=== PATIENT | male | born 1995 | race Caucasian/White ===

== ENCOUNTER 2017-10-15 16:54 | Emergency (ER) | payer OTHER ==
--- NOTE | 2017-10-15 17:28 | XRAY Report ---
EXAM: LEFT ANKLE RADIOGRAPHY EXAM DATE: 10/15/2017 05:11 PM. CLINICAL HISTORY: Injury. COMPARISON: None. TECHNIQUE: 3 views. FINDINGS: Bones: Normal. No fractures or bone lesions. Joints: Normal. No effusion. No subluxations. The ankle mortise is normally aligned. Soft Tissues: Mild lateral soft tissue swelling. IMPRESSION: No fracture or dislocation. [facility] Referring Provider Line: [phone] SITE ID: [id number]
[2017-10-15 18:56] VITALS: BP 110/67
--- NOTE | 2017-10-15 19:02 | ED Physician Documentation ---
History of Present Illness - Stated complaint Stated Complaint: L ANKLE INJ - Chief complaint Chief Complaint: Ext Problem - Additonal information Additional information: hx from pt 22 male AD rolled ankle playing basketball yesterday played for a bit longer but it hurt so he had to sit out still hurts today so to ER for xrays Review of Systems Musculoskeletal: reports: Pain with weight bearing PD PAST MEDICAL HISTORY - Past Medical History Past Medical History: No - Past Surgical History Past Surgical History: No - Present Medications Home Medications: Ambulatory Orders Medication Instructions Recorded Confirmed No Known Home Medications [No 10/15/17 10/15/17 Known Home Medications] - Allergies Allergies/Adverse Reactions: Allergies Allergy/AdvReac Type Severity Reaction Status Date / Time No Known Drug Allergies Allergy Verified 10/15/17 17:07 - Social History Does the pt smoke?: No Smoking Status: Never smoker Does the pt drink ETOH?: No Does the pt have substance abuse?: No - Immunizations Immunizations are current?: Yes PD ED PE NORMAL - Vitals Vital signs reviewed: Yes - Extremities Extremities: Other (LLE - knee non tedner, prox tib fib NT, TTP lateral > medial mall and tolig inf and to lateral mall, no TTP to 5th MT or forefooot/ midfoot, MSV intact, no laxity) Results - Vitals Vitals: Vital Signs - 24 hr 10/15/17 10/15/17 17:02 18:55 Temperature 37.2 C 36.4 C L Heart Rate 77 65 Respiratory 18 18 Rate Blood Pressure 115/70 110/67 O2 Saturation 99 98 Oxygen O2 Source Room air - Rads (name of study) ank;e Radiology: See rad report (neg) Departure - Departure Disposition: 01 Home, Self Care Clinical Impression: Ankle sprain Qualifiers: Encounter type: initial encounter Involved ligament of ankle: unspecified ligament Laterality: left Qualified Code(s): S93.402A - Sprain of unspecified ligament of left ankle, initial encounter Condition: Good Instructions: ED Sprain Ankle Follow-Up: ANDREW Olson [Provider Group] Comments: Thankfully no fracture was seen Recommend you use the LENKA wrap (as well as ice and elevation) to decrease swelling, use the crutches to rest the ankle, motrin as needed for pain When you are able to bear weight without pain you can stop using the crutches If you can still not bear weight without pain in 2 weeks, please follow up with your PMD at [facility] for a recheck and consideration of further imaging Forms: Activity restrictions
== END 2017-10-15 19:22 | disposition home or self-care (01) ==
LOC: ED 16:54
DX: S93.402A Sprain of unspecified ligament of left ankle, initial encounter (principal); X50.0XXA Overexertion from strenuous movement or load, initial encounter; Y93.67 Activity, basketball
CPT/HCPCS: 99283

== ENCOUNTER 2021-03-28 19:32 | Emergency (ER) | payer OTHER ==
--- NOTE | 2021-03-28 21:03 | ED Physician Documentation ---
History of Present Illness - Stated complaint Stated Complaint: MIGRAINE,DIZZY - Chief complaint Chief Complaint: Neuro - History obtained from History obtained from: Patient - Additonal information Additional information: Pt comes to the ED for CC of migraine headache. He states he has a h/o migraines, and that this feels consistent with previous ones. He states that sx started last night, and that as usual, escalated to nausea until he vomited this afternoon. As also per usual, pt began to improve after vomiting. He states he is mainly here for a work note, since he missed work at his job at the [employer] today. No other complaints at this time. Review of Systems Ten Systems: 10 systems reviewed and negative Constitutional: reports: Reviewed and negative Eyes: reports: Reviewed and negative Ears: reports: Reviewed and negative Nose: reports: Reviewed and negative Throat: reports: Reviewed and negative Cardiac: reports: Reviewed and negative Respiratory: reports: Reviewed and negative GI: reports: Nausea, Vomiting, Reviewed and negative : reports: Reviewed and negative Skin: reports: Reviewed and negative Musculoskeletal: reports: Reviewed and negative Neurologic: reports: Headache Psychiatric: reports: Reviewed and negative Endocrine: reports: Reviewed and negative Immunocompromised: reports: Reviewed and negative PD PAST MEDICAL HISTORY - Past Medical History Past Medical History: Yes Neuro: Migraines - Past Surgical History Past Surgical History: No - Present Medications Home Medications: Ambulatory Orders Medication Instructions Recorded Confirmed SUMAtriptan [Imitrex] 25 mg PO PRN PRN 03/28/21 03/28/21 - Allergies Allergies/Adverse Reactions: Allergies Allergy/AdvReac Type Severity Reaction Status Date / Time No Known Drug Allergies Allergy Verified 03/28/21 19:55 - Social History Does the pt smoke?: No Smoking Status: Never smoker Does the pt drink ETOH?: No Does the pt have substance abuse?: No - Immunizations Immunizations are current?: Yes PD ED PE NORMAL - Vitals Vital signs reviewed: Yes - General General: Alert and oriented X 3, No acute distress, Well developed/nourished - HEENT HEENT: Atraumatic, PERRL, EOMI, Moist mucous membranes - Neck Neck: Supple, no meningeal sign - Cardiac Cardiac: RRR, No murmur - Respiratory Respiratory: No respiratory distress, Clear bilaterally - Abdomen Abdomen: Soft, Non tender, Non distended - Derm Derm: Warm and dry - Extremities Extremities: No deformity - Neuro Neuro: Alert and oriented X 3 - Psych Psych: Normal mood, Normal affect Results - Vitals Vitals: Oxygen O2 Source Room air PD MEDICAL DECISION MAKING - ED course Complexity details: considered differential, d/w patient ED course: Pt declined symptomatic treatment, stating that he mostly was feeling better. Pt was well-appearing at this point, and no further work-up was indicated in the ED. Pt stable for d/c home. I have written a work note. Departure - Departure Disposition: Home, Self Care Clinical Impression: Migraine Qualifiers: Migraine type: unspecified Status migrainosus presence: without status migrainosus Intractability: not intractable Qualified Code(s): G43.909 - Migraine, unspecified, not intractable, without status migrainosus Condition: Stable Instructions: ED Headache Migraine Forms: Activity restrictions Discharge Date/Time: 03/28/21 21:30
[2021-03-28 21:28] VITALS: BP 108/64
== END 2021-03-28 21:30 | disposition home or self-care (01) ==
LOC: ED 19:32
DX: G43.909 Migraine, unspecified, not intractable, without status migrainosus (principal); R11.2 Nausea with vomiting, unspecified
CPT/HCPCS: 99281; 99284

== ENCOUNTER 2021-07-16 16:02 | Emergency (ER) | payer OTHER ==
--- NOTE | 2021-07-16 16:37 | ED Physician Documentation ---
History of Present Illness - Stated complaint Stated Complaint: MALE - Chief complaint Chief Complaint: General - History obtained from History obtained from: Patient - Additonal information Additional information: Constant dull pain of the left testicle over the last 2 months. Certain positions make it better and worse. Sometimes finds it difficult to find a comfortable position to sleep in. Over a month ago he had a negative ultrasound on the [place] and per him he was also tested for STDs which was negative. Over the last week the pain is a little worse, still constant and he thinks he f eels a lump on the medial side of the left testicle now. Review of Systems Constitutional: denies: Fever, Chills Nose: denies: Rhinorrhea / runny nose Throat: denies: Sore throat Cardiac: denies: Chest pain / pressure, Palpitations Respiratory: denies: Dyspnea, Cough PD PAST MEDICAL HISTORY - Past Medical History Neuro: Migraines - Past Surgical History Past Surgical History: No - Present Medications Home Medications: Ambulatory Orders Medication Instructions Recorded Confirmed SUMAtriptan [Imitrex] 25 mg PO PRN PRN 03/28/21 03/28/21 - Allergies Allergies/Adverse Reactions: Allergies Allergy/AdvReac Type Severity Reaction Status Date / Time No Known Drug Allergies Allergy Verified 07/16/21 16:05 - Social History Does the pt smoke?: No Smoking Status: Never smoker Does the pt drink ETOH?: No Does the pt have substance abuse?: No - Immunizations Immunizations are current?: Yes PD ED PE NORMAL - Vitals Vital signs reviewed: Yes - General General: Alert and oriented X 3, No acute distress - HEENT HEENT: PERRL, EOMI - Neck Neck: Supple, no meningeal sign, No bony TTP - Cardiac Cardiac: RRR, No murmur - Abdomen Abdomen: Non tender - Male Male : Other (Testicular exam is grossly normal, I do not feel a mass. He has positive cremaster reflexes on both sides. No tenderness. No hernia mass.) - Neuro Neuro: Alert and oriented X 3, Normal speech Results - Vitals Vitals: Vital Signs - 24 hr 07/16/21 07/16/21 16:05 18:31 Temperature 36.5 C 36.5 C Heart Rate 75 72 Respiratory 16 16 Rate Blood Pressure 127/69 124/72 O2 Saturation 100 100 Oxygen O2 Source Room air PD MEDICAL DECISION MAKING - ED course ED course: 25-year-old gentleman with now chronic left testicular pain. Initial read from the blood collector was negative except for an epididymal cyst. Radiologist questions epididymoorchitis which is not consistent with the clinical picture. Advised to follow-up with urology. Departure - Departure Disposition: Home, Self Care Clinical Impression: Testicular pain, left Condition: Good Record reviewed to determine appropriate education?: Yes Instructions: ED Testicular Pain [facility] Comments: Your ultrasound was negative except for an epididymal cyst on the left side. It was very small but this is likely what you are feeling on the left. This would not be a painful finding. So the cause of your pain is not clear. The time course and 2 negatives ultrasound suggested a benign cause. That said I would [place] and consider referral to your urology for further evaluation and treatment. Ibuprofen as needed for pain. Return if worsening. Discharge Date/Time: 07/16/21 18:30
--- NOTE | 2021-07-16 18:27 | Ultrasound Report ---
PROCEDURE: Testicle w/Doppler INDICATIONS: L testicle pain TECHNIQUE: Real-time scanning was performed of the scrotum and testicles, with image documentation. Color and p ulse Doppler interrogation was performed of both testicles. COMPARISON: None. FINDINGS: Left: Testicle is normal in size at 2.3 x 2.7 x 5.2 cm, and homogenous in echotexture. Epididymis i s normal in overall size and morphology. No hydrocele or varicoceles. Overlying scrotal skin is nor mal in thickness. Right: Testicle is normal in size at 1.7 x 3.1 x 4.4 cm, and homogeneous in echotexture. Epididymis is normal in overall size and morphology. No hydrocele or varicoceles. Overlying scrotal skin is n ormal in thickness. Doppler: Color and pulse Doppler interrogation demonstrates arterial and venous blood flow in both t esticles. There is questionable asymmetrically increased blood flow in the left testicle and left epi didymis. IMPRESSION: Questionable slight asymmetric increase in Doppler flow signal in the left testicle epididymis. Findi ngs could represent epididymoorchitis in the appropriate clinical setting, versus representing a norm al for the patient or perhaps a technique-related visual difference. No findings of torsion or other acute finding in the testicles. Reviewed by: Bentley Clay MD on 07/16/2021 5:25 PM [facility] Approved by: Bentley Clay MD on 07/16/2021 5:25 PM [facility] Station ID: [id number]
[2021-07-16 18:32] VITALS: BP 124/72
--- NOTE | 2021-07-17 12:21 | ED Physician Documentation ---
ED Addendum - Addendum Addendum: 07/17/21 12:20 Initial report on ultrasound was epididymal cyst but no acute disease, final report reviewed and I talked with patient today and we will trial some doxycycline. He was electronically prescribed doxycycline 100 mg p.o. twice daily for 10 days to [place].
== END 2021-07-16 18:30 | disposition home or self-care (01) ==
LOC: ED 16:02
DX: N50.812 Left testicular pain (principal); G89.29 Other chronic pain; N50.3 Cyst of epididymis
CPT/HCPCS: 93975; 99283; 99284

== ENCOUNTER 2023-06-10 12:59 | Emergency (ER) | payer OTHER ==
[2023-06-10 13:17] VITALS: BP 115/75; O2SAT 100
--- NOTE | 2023-06-10 13:31 | ED Physician Documentation ---
PD HPI HEADACHE - Stated complaint Stated Complaint: HEAD PX,NAUSEA - Chief complaint Chief Complaint: Neuro - History obtained from History obtained from: Patient - History of Present Illness Timing - onset: How many months ago (had had headache left side most days for some duration for couple of months, with increasing severity and duration. The past 2 weeks has had daily and mostly continual headache, worsening the past couple of days. Left sided with nausea, light/smell sensitive, some blurred vision. No focal deficits.) Timing - onset during: Light activity Timing - details: Gradual onset, Still present, Waxing and waning Worst headache ever?: Worst headache ever? Location: Front, Left Quality: Throbbing, Aching Associated symptoms: Nausea, Vision changes. No: Fever, Stiff neck, Vomiting, Weakness, Numbness Improved by: Dark room Worsened by: Light, Moving, Other (smells) Contributing factors: No: Recent illness, Trauma Similar symptoms before: Has not had sx before Recently seen: Not recently seen Review of Systems Constitutional: denies: Fever, Chills Eyes: reports: Photophobia. denies: Loss of vision Nose: reports: Sinus pressure / pain. denies: Rhinorrhea / runny nose, Congestion Throat: denies: Sore throat Cardiac: denies: Chest pain / pressure, Palpitations Respiratory: denies: Cough GI: reports: Nausea. denies: Abdominal Pain, Vomiting PD PAST MEDICAL HISTORY - Past Medical History Past Medical History: Yes Cardiovascular: None Respiratory: None Neuro: Migraines (occasional headaches in past self daignosed as migraines. No evaluations. Takes Tylenol or Ibuprofen and rests. More frequent and severe the past 2 months. ) Endocrine/Autoimmune: None GI: None : None HEENT: None Psych: None Musculoskeletal: None Derm: None - Past Surgical History Past Surgical History: No - Present Medications Home Medications: Ambulatory Orders Medication Instructions Recorded Confirmed Amitriptyline [Elavil] 25 mg PO HS #30 tablet 06/10/23 HYDROcod/ACETAM 5/325 [[place] 5/325] 1 ea PO Q6H PRN #12 tablet 06/10/23 Meloxicam [Mobic] 7.5 mg PO BID 10 Days #20 tablet 06/10/23 dexAMETHasone [Decadron] 4 mg PO DAILY #7 tablet 06/10/23 - Allergies Allergies/Adverse Reactions: Allergies Allergy/AdvReac Type Severity Reaction Status Date / Time No Known Drug Allergies Allergy Verified 06/10/23 13:06 - Social History Does the pt smoke?: No Smoking Status: Never smoker Does the pt drink ETOH?: No Does the pt have substance abuse?: No - Immunizations Immunizations are current?: Yes PD ED PE NORMAL - Vitals Vital signs reviewed: Yes - General General: Alert and oriented X 3, No acute distress, Well developed/nourished - HEENT HEENT: PERRL, EOMI, Ears normal, Pharynx benign, Dentition benign - Neck Neck: Supple, no meningeal sign, No adenopathy - Cardiac Cardiac: RRR, No murmur - Respiratory Respiratory: Clear bilaterally - Derm Derm: Normal color, Warm and dry - Extremities Extremities: Normal ROM s pain - Neuro Neuro: Alert and oriented X 3, webbing inspector 2-12 intact, No motor deficit, No sensory deficit, Normal speech Eye Opening: Spontaneous Motor: Obeys Commands Verbal: Oriented GCS Score: 15 Results - Vitals Vitals: Oxygen O2 Source Room air - Labs Labs: Laboratory Tests 06/10/23 06/10/23 14:18 14:18 WBC 6.5 RBC 5.06 Hgb 16.3 Hct 46.4 MCV 91.7 MCH 32.2 H MCHC 35.1 RDW 12.2 Plt Count 213 MPV 10.1 Neut # (Auto) 3.6 Lymph # (Auto) 2.2 [place] # (Auto) 0.5 Eos # (Auto) 0.1 Baso # (Auto) 0.0 Absolute Nucleated RBC 0.00 Nucleated RBC % 0.0 Sodium 138 Potassium 4.0 Chloride 103 Carbon Dioxide 31 Anion Gap 4.0 L BUN 18 Creatinine 1.0 Estimated GFR (MDRD) 91 Glucose 94 Calcium 9.5 Magnesium 1.8 Total Bilirubin 0.5 AST 14 ALT 14 Alkaline Phosphatase 58 Total Protein 6.8 Albumin 4.6 Globulin 2.2 Albumin/Globulin Ratio 2.1 Lipase 36 - Rads (name of study) head CT Relevant Findings:: Prelim report reviewed (normal head CT. ), EMP independent interpretation of test PD Medical Decision Making - ED course Complexity details: considered differential (has had left sided headache and pressure continually for week or two and daily in mornings for month or two. Previous to that just episodic HAs. Has components that sound migraine with nausea, light sensitive, unilateral. No formal Dx. Can get CT and labs. ), d/w patient Reviewed Lab Results: CT head normal so excludes larger procerss. In further workup, MRI could be considered. Labs are normal. The headaches sound migrainous but are daily/consistent now for couple weeks and has had them most days for some duration for month or two. I would treat as functional headache, daily migraine or chronic daily headache. steroid short course, then NSAIDs, along with starting prophylactic med of low dose elavil. Follow up with PCP/Neurology for further guidance. Departure - Departure Disposition: Home, Self Care Clinical Impression: Left-sided headache, Chronic daily headache Condition: Stable Record reviewed to determine appropriate education?: Yes Instructions: ED Cephalgia Unspecified Follow-Up: Keith Beebe MD [Provider Admit Priv/Credential] - Jay Chand MD [Physician No Access] - Moo Ball MD [Physician No Access] - Prescriptions: dexAMETHasone [Decadron] 4 mg PO DAILY #7 tablet Amitriptyline [Elavil] 25 mg PO HS #30 tablet Meloxicam [Mobic] 7.5 mg PO BID 10 Days #20 tablet HYDROcod/ACETAM 5/325 [[place] 5/325] 1 ea PO Q6H PRN #12 tablet PRN Reason: Pain Comments: Your CT of the head was normal. No signs of intracranial process. Your sinuses appeared normal as well. Your headaches sound like chronic daily headaches and migraine variant and we could treat it as such with a combination of anti- inflammatories and a medication to reduce the incidence of migraine/headache. I would start with a mild steroid type anti-inflammatory for the next 5 days and then car changer to a nonsteroidal anti-inflammatory. To be taken with food. Also amitriptyline 25 mg at night daily. This is a common migraine type medication for frequent or daily headaches. This is a low-dose starting. To that add Tylenol every 4-6 hours if needed for pain or hydrocodone pain medicine if needed. Regarding your testicular bump and tenderness, I did give also the name of a urologist here in [place] they can call for follow-up. Otherwise have provided the names of 2 neurologists, 1 in [place] and the other out of [place] body believe he goes to [place] as well. There are other neurologist and with those 2 offices so whomever is able to see you as a new patient. Call for appointments. I sent your prescriptions to your preferred pharmacy. I am prescribing a short course of narcotic pain medication for you. These are potentially dangerous and addictive medications that should be used carefully. These medications may constipate you. Take an gtsu-qfz-foqxltn stool softener such as docusate twice daily with plenty of water while taking these medications. If you go 24 hours without a bowel movement, take lupv-wpl-olimrrd MiraLAX, per package instructions. Do not drink or drive while taking these medications. If you received narcotic or sedating medications while in the emergency department do not drive for 24 hours. Store this medication in a safe, secure place and out of reach of children. It is a violation of federal law to give or sell this medication to another person or to use in a manner other than prescribed. The ED will not refill narcotic prescriptions, including prescriptions lost or stolen. You can dispose of unwanted medications at the [facility]'s office or at several pharmacies such as [facility]. Forms: PCP List Discharge Date/Time: 06/10/23 16:32
[2023-06-10 14:25] LABS: BASOPHILS % (AUTO) 0.3 %; EOSINOPHILS # (AUTO) 0.1 10^3/uL (0.0-0.7); EOSINOPHILS % (AUTO) 1.4 %; HCT - HEMATOCRIT 46.4 % (42.0-52.0); HGB - HEMOGLOBIN 16.3 g/dL (14.0-18.0); LYMPHOCYTES # (AUTO) 2.2 10^3/uL (1.5-3.5); LYMPHOCYTES % (AUTO) 34.4 %; MEAN CORPUSCULAR HEMOGLOBIN 32.2 pg (27.0-31.0); MEAN CORPUSCULAR HGB CONC 35.1 g/dL (32.0-36.0); MEAN CORPUSCULAR VOLUME 91.7 fL (80.0-94.0); MEAN PLATELET VOLUME 10.1 fL (7.4-11.4); MONOCYTES # (AUTO) 0.5 10^3/uL (0.0-1.0); MONOCYTES % (AUTO) 7.6 %; NEUTROPHILS # (AUTO) 3.6 10^3/uL (1.5-6.6); PLT - PLATELET COUNT 213 10^3/uL (130-450); RED BLOOD COUNT 5.06 10^6/uL (4.70-6.10); RED CELL DISTRIBUTION WIDTH 12.2 % (12.0-15.0); WHITE BLOOD COUNT 6.5 x10^3/uL (4.8-10.8)
[2023-06-10 14:41] LABS: ALBUMIN 4.6 g/dL (3.2-5.5); ALBUMIN/GLOBULIN RATIO 2.1 (1.0-2.2); BILIRUBIN,TOTAL 0.5 mg/dL (0.2-1.0); CALCIUM 9.5 mg/dL (8.5-10.3); MAGNESIUM 1.8 mg/dL (1.7-2.3); TOTAL PROTEIN 6.8 g/dL (6.4-8.9)
--- NOTE | 2023-06-10 15:39 | CT Report ---
PROCEDURE: HEAD WO INDICATIONS: left head/neck pain >1 month TECHNIQUE: Noncontrast 4.5 mm thick angled axial sections acquired from the foramen magnum to the vertex. For r adiation dose reduction, the following was used: automated exposure control, adjustment of mA and/or kV according to patient size. COMPARISON: None. FINDINGS: Image quality: Excellent. CSF spaces: Basal cisterns are patent. No extra-axial fluid collections. Ventricles are normal in size and shape. Brain: No midline shift. No intracranial masses or hemorrhage. Mccarthy-white matter interface is norm al. Skull and face: Calvarium and visualized facial bones are intact, without suspicious lesions. Sinuses: Visualized sinuses and mastoids are clear. IMPRESSION: No acute intracranial pathology. Reviewed by: Ac Spicer MD on 06/10/2023 3:37 PM PDT Approved by: Ac Spicer MD on 06/10/2023 3:37 PM PDT Station ID: [id number]
--- NOTE | 2023-06-10 15:40 | CT Report ---
PROCEDURE: CERVICAL SPINE WO INDICATIONS: left head/neck pain>1 month TECHNIQUE: Noncontrast 3 mm thick sections acquired from the skull base to the T4 level. Sagittal and coronal r eformats were then constructed. For radiation dose reduction, the following was used: automated exp osure control, adjustment of mA and/or kV according to patient size. COMPARISON: None. FINDINGS: Image quality: Excellent. Bones: No fractures or dislocations. Visualized superior ribs are intact. Soft tissues: Prevertebral soft tissues are normal in thickness. No paravertebral hematomas. No ap ical pneumothoraces. IMPRESSION: No acute osseous abnormality. Reviewed by: Ac Spicer MD on 06/10/2023 3:39 PM PDT Approved by: Ac Spicer MD on 06/10/2023 3:39 PM PDT Station ID: [id number]
[2023-06-10] MEDS ORDERED: ACETAMINOPHEN 325 MG TABLET PO STA (16:01)
[2023-06-10] MEDS ORDERED: dexAMETHasone 4 MG TABLET PO STA (16:01)
== END 2023-06-10 16:32 | disposition home or self-care (01) ==
LOC: ED 12:59
DX: R51.9 Headache, unspecified (principal)
CPT/HCPCS: 36415; 70450; 72125; 80053; 83690; 83735; 85025; 99284; A9270; J8540

== ENCOUNTER 2023-10-14 15:21 | Outpatient (CLI) | payer OTHER ==
--- NOTE | 2023-10-14 19:33 | MRI Report ---
PROCEDURE: MRI brain without contrast INDICATIONS: HEADACHE TECHNIQUE: Multiplanar multisequential MR images of the brain were obtained without contrast COMPARISON: None FINDINGS: CSF Spaces: Basal cisterns are patent. No extra-axial fluid collections. Ventricles are normal in size and shape. Brain: No intracranial masses or hemorrhage. Mccarthy/white matter interface is normal. Brainstem appe ars normal. Diffusion-weighted images shows no evidence of acute infarct. Normal intravascular flow voids are present. Skull and face: Calvarium has normal marrow signal. Orbits appear normal. Sinuses: Sinuses and mastoids are clear. IMPRESSION: Unremarkable MRI of the brain Reviewed by: Maicol Cox MD on 10/14/2023 6:31 PM [facility] Approved by: Maicol Cox MD on 10/14/2023 6:31 PM [facility] Station ID: [id number]
== END 2023-10-14 15:22 | disposition home or self-care (01) ==
LOC: DI 15:21
PROVIDERS: ATTEND Physician Assistant
DX: R51.9 Headache, unspecified (principal)

== ENCOUNTER 2023-10-29 14:55 | Emergency (ER) | payer OTHER ==
[2023-10-29 15:37] LABS: BILIRUBIN,URINE NEGATIVE (NEGATIVE); GLUCOSE, URINE (UA) NEGATIVE (NEGATIVE); KETONES,URINE (UA) NEGATIVE (NEGATIVE); LEUKOCYTE ESTERASE, URINE NEGATIVE (NEGATIVE); NITRITE,URINE NEGATIVE (NEGATIVE); OCCULT BLOOD,URINE NEGATIVE (NEGATIVE); PH,URINE 6.5 PH (5.0-7.5); PROTEIN,URINE NEGATIVE (NEGATIVE); UROBILINOGEN,URINE 0.2 (NORMAL) E.U./dL (NORMAL)
[2023-10-29 15:38] VITALS: BP 116/68; O2SAT 100
[2023-10-29 15:58] LABS: BACTERIA,URINE None Seen /HPF (None Seen); CLARITY,URINE CLEAR (CLEAR); RBC,URINE None Seen /HPF (0-5); SQUAMOUS EPITHELIAL CELL,UR NONE SEEN (<= Few); WBC,URINE 0-3 /HPF (0-3)
--- NOTE | 2023-10-29 16:12 | ED Physician Documentation ---
History of Present Illness - Stated complaint Stated Complaint: BLOOD - Chief complaint Chief Complaint: UTI - History obtained from History obtained from: Patient - Additonal information Additional information: He has a history of epididymitis and noticed some blood in his semen last night. He had mild left testicular pain for a few months. He was referred to urology after previous episode but did not follow-up. PD PAST MEDICAL HISTORY - Past Medical History Past Medical History: No Cardiovascular: None Respiratory: None Neuro: Migraines Endocrine/Autoimmune: None GI: None : None HEENT: None Psych: None Musculoskeletal: None Derm: None - Past Surgical History Past Surgical History: No - Present Medications Home Medications: Ambulatory Orders Medication Instructions Recorded Confirmed Amitriptyline [Elavil] 25 mg PO HS #30 tablet 06/10/23 HYDROcod/ACETAM 5/325 [[place] 5/325] 1 ea PO Q6H PRN #12 tablet 06/10/23 Meloxicam [Mobic] 7.5 mg PO BID 10 Days #20 tablet 06/10/23 dexAMETHasone [Decadron] 4 mg PO DAILY #7 tablet 06/10/23 Doxycycline [Vibramycin] 100 mg PO BID #14 tablet 10/29/23 - Allergies Allergies/Adverse Reactions: Allergies Allergy/AdvReac Type Severity Reaction Status Date / Time No Known Drug Allergies Allergy Verified 06/10/23 13:06 - Social History Does the pt smoke?: No Smoking Status: Never smoker Does the pt drink ETOH?: No Does the pt have substance abuse?: No - Immunizations Immunizations are current?: Yes PD ED PE NORMAL - Vitals Vital signs reviewed: Yes - General General: Alert and oriented X 3, No acute distress - Abdomen Abdomen: Normal bowel sounds, Soft, Non tender - Male Male : Other (Normal uncircumcised male genitalia without tenderness, nor hernia mass.) - Neuro Neuro: Alert and oriented X 3, Normal speech Results - Vitals Vitals: Vital Signs - 24 hr 10/29/23 15:14 Temperature 37.3 C Heart Rate 76 Respiratory 16 Rate Blood Pressure 116/68 O2 Saturation 100 Oxygen O2 Source Nasal cannula - Labs Labs: Laboratory Tests 10/29/23 15:30 Urine Color YELLOW Urine Clarity CLEAR Urine pH 6.5 Ur Specific [place] 1.025 Urine Protein NEGATIVE Urine Glucose (UA) NEGATIVE Urine Ketones NEGATIVE Urine Occult Blood NEGATIVE Urine Nitrite NEGATIVE Urine Bilirubin NEGATIVE Urine Urobilinogen 0.2 (NORMAL) Ur Leukocyte Esterase NEGATIVE Urine RBC None Seen Urine WBC 0-3 Ur Squamous Epith Cells NONE SEEN Urine Bacteria None Seen Urine Culture Comments NOT INDICATED PD Medical Decision Making - ED course ED course: He presents with blood in his semen last night and now a normal exam. No severe pain to suggest torsion. Negative urinalysis. Will treat for epididymitis as previously, he tolerated doxycycline well a few years ago and reemphasized the need to follow-up with urology. Departure - Departure Disposition: 01 Home, Self Care Clinical Impression: Acute epididymitis Condition: Good Record reviewed to determine appropriate education?: Yes Instructions: ED Epididymitis Follow-Up: Keith Beebe MD [Provider Admit Priv/Credential] - Prescriptions: Doxycycline [Vibramycin] 100 mg PO BID #14 tablet Comments: I sent the prescription electronically to the [facility] in [place]. As discussed you should follow[place] [facility]. Return if worse.
== END 2023-10-29 16:35 | disposition home or self-care (01) ==
LOC: ED 14:55
DX: N45.1 Epididymitis (principal)
CPT/HCPCS: 81001; 87086; 99283; 99284

== ENCOUNTER 2023-12-17 17:28 | Outpatient (CLI) | payer OTHER ==
--- NOTE | 2023-12-18 18:21 | MRI Report ---
PROCEDURE: Cervical Spine WO INDICATIONS: CERVICAL DISC DISORDER TECHNIQUE: Noncontrast sagittal T1 spin echo and T2 fast spin echo, sagittal STIR, foraminal oblique sagittal T2 fast spin echo, and axial gradient echo or T2 fast spin echo through the cervical spine. COMPARISON: Correlation is made with cervical spine CT, 06/10/2023. FINDINGS: Image quality: Motion artifact is noted. Alignment and Curvature: There is overall straightening of the normal cervical lordosis. No signifi cant AP alignment abnormality can be seen. Bone Marrow: Marrow demonstrates normal overall signal. Spinal Cord: Visualized spinal cord has normal size and signal. No cerebellar tonsillar herniation. Paraspinous Soft Tissues: No paravertebral masses. Prevertebral soft tissues are normal in thicknes s. C2-C3: Normal in appearance. C3-C4: Normal in appearance. C4-C5: Normal in appearance. C5-C6: Normal in appearance. C6-C7: Normal in appearance. C7-T1: Normal in appearance. IMPRESSION: Straightening of the normal cervical lordosis is seen, which is commonly observed in patients with mu scular spasm. No significant disc abnormality is seen. No significant neural foraminal or central canal narrowing can be seen. Reviewed by: Brad Herrera MD on 12/18/2023 5:19 PM [facility] Approved by: Brad Herrera MD on 12/18/2023 5:19 PM [facility] Station ID: [id number]
== END 2023-12-17 17:29 | disposition home or self-care (01) ==
LOC: DI 17:28
PROVIDERS: ATTEND Physical Medicine & Rehabilitation
DX: M54.2 Cervicalgia (principal)

== ENCOUNTER 2024-03-22 15:27 | Outpatient (CLI) | payer OTHER | END 2024-03-22 15:28 | disposition home or self-care (01) | LOC: CAM 15:27 | PROVIDERS: ATTEND Physical Medicine & Rehabilitation | DX: M50.123 Cervical disc disorder at C6-C7 level with radiculopathy (principal) | CPT/HCPCS: 97810; 97811 ==